=== PATIENT | male | born 1970 | race Caucasian/White ===

== ENCOUNTER 2016-11-28 20:40 | Emergency (ER) | payer OTHER ==
--- NOTE | 2016-11-28 20:45 | PDOC ---
History of Present Illness - General History Source: Patient Exam Limitations: No Limitations - History of Present Illness Initial Comments: The patient is a 46 yo M with no significant past medical history who presents with L elbow pain. The patient states he was in the drivers seat of his car and he pulled away and the door swung out. The patient states when he grabbed the door it pulled his arm subsequently hurting his elbow. The patient denies trauma to other areas. He denies head trauma and LOC. The patient states his pain is worsened by extension of his L arm. Allergies: Penicillin <Bobbi Brumfield - Last Filed: 11/28/16 20:57> - General History Source: Patient, Old Records Exam Limitations: No Limitations <Estela Piper - Last Filed: 11/28/16 21:21> - General Chief Complaint: Injury Stated Complaint: LT ARM PAIN Time Seen by Provider: 11/28/16 20:44 Past History <Bobbi Brumfield - Last Filed: 11/28/16 20:57> - Psycho/Social/Smoking Cessation Hx Suicidal Ideation: No Smoking History: Current every day smoker Have you smoked in the past 12 months: Yes Number of Cigarettes Smoked Daily: 10 Information on smoking cessation initiated: Yes <Estela Piper - Last Filed: 11/28/16 21:21> - Past Medical History Allergies/Adverse Reactions: Allergies Allergy/AdvReac Type Severity Reaction Status Date / Time Penicillins Allergy Verified 11/28/16 20:44 Home Medications: Ambulatory Orders NK [No Known Home Medication] 11/28/16 Review of Systems - Review of Systems Able to Perform ROS?: Yes Comments:: CONSTITUTIONAL: Absent: fever, no chills, no fatigue EYES: Absent: visual changes ENT: Absent: ear pain, no sore throat CARDIOVASCULAR: Absent: chest pain, no palpitations RESPIRATORY: Absent: cough, no SOB GI: Absent: abdominal pain, no nausea, no vomiting, no constipation, no diarrhea GENITOURINARY: Absent: dysuria, no frequency, no hematuria MUSKULOSKELETAL: + L elbow pain Absent: back pain SKIN: Absent: rash <Bobbi Brumfield Last Filed: 11/28/16 20:57> *Physical Exam - Vital Signs Last Vital Signs Temp Pulse Resp BP Pulse Ox 98.6 F 89 16 122/76 96 11/28/16 20:42 11/28/16 20:42 11/28/16 20:42 11/28/16 20:42 11/28/16 20:42 - Physical Exam Comments: GENERAL: Well-appearing, well-nourished. No apparent distress. HEENT: Normocephalic, atraumatic. PERRL, EOM intact. CARDIOVASCULAR: Normal S1, S2. Regular rate and rhythm. PULMONARY: Clear to auscultation bilaterally. ABDOMEN: Soft, non-distended, non-tender. EXTREMITIES: No gross deformities. Swelling to the L biceps region with tenderness but no ecchymosis. Biceps tendon was not palpable. No bony tenderness. SKIN: Warm, dry. No rash NEUROLOGICAL: No focal neurological deficits. <Bobbi Brumfield - Last Filed: 11/28/16 20:57> - Vital Signs Last Vital Signs Temp Pulse Resp BP Pulse Ox 98.6 F 89 16 122/76 96 11/28/16 20:42 11/28/16 20:42 11/28/16 20:42 11/28/16 20:42 11/28/16 20:42 <Estela Piper - Last Filed: 11/28/16 21:21> Medical Decision Making - Medical Decision Making 11/28/16 20:53 46-year-old male with no significant past medical history presents to the emergency department with pain to his left humerus region after his car door swung out words while he was holding it. Differential diagnosis includes but is not limited to: Biceps tendon rupture, Humerus fracture, elbow fracture, soft tissue injury, muscle spasm. Plan: 1. Plain films of left humerus and elbow 2. NSAIDs for pain 3. The patient will require follow-up with orthopedics within the next 1-5 days 4. I've advised the patient to return to the emergency department if his symptoms persist, worsen, or new symptoms arise. 11/28/16 21:18 Addendum: Plain films of the left humerus and elbow are negative by my read. Will discharge home with the abovementioned instructions. <Estela Piper - Last Filed: 11/28/16 21:21> *DC/Admit/Observation/Transfer - Attestations Scribe Attestion: Documentation prepared by Bobbi Brumfield, acting as certified medical assistant for Estela Piper MD, /DO. <Bobbi Brumfield - Last Filed: 11/28/16 20:57> - Discharge Dispostion Admit: No - Attestations Physician Attestion: 11/28/16 20:55 I, Dr. Estela Piper, attest that the scribes documentation that appears above has been prepared under my direction and personally reviewed by me in its entirety. I confirmed that the note above accurately reflects all work, treatment, procedures, and medical decision-making performed by me. <Estela Piper - Last Filed: 11/28/16 21:21> Diagnosis at time of Disposition: Rupture of left biceps tendon - Discharge Dispostion Disposition: HOME Condition at time of disposition: Stable - Patient Instructions Printed Discharge Instructions: How to Use a Sling Additional Instructions: You may follow-up with orthopedics: Dr Ceballos or Dr. Dailey: [phone] You may take Ibuprofen 600-800mg every 6=-8 hours as needed for pain. Return to the emergency department if your symptoms persist, worsen, or new symptoms arise.
[2016-11-28 20:54] VITALS: BP 122/76; PULSE 89; TEMP 98.6; BMI 32.6
[2016-11-28] MEDS ORDERED: IBUPROFEN 400 MG TABLET (FP) PO ONE ×2 (20:57→21:00)
== END 2016-11-28 21:27 | disposition home or self-care (01) ==
LOC: FER 20:40
DX: S46.212A Strain of muscle, fascia and tendon of other parts of biceps, left arm, initial encounter (principal); V48.0XXA Car driver injured in noncollision transport accident in nontraffic accident, initial encounter; Y93.89 Activity, other specified; Y92.219 Unspecified school as the place of occurrence of the external cause; F17.210 Nicotine dependence, cigarettes, uncomplicated
CPT/HCPCS: 73060-TC-LT; 73070-TC-LT; 99282-25

== ENCOUNTER 2018-07-10 13:43 | Emergency (ER) | payer OTHER ==
--- NOTE | 2018-07-10 13:50 | PDOC ---
History of Present Illness - General Chief Complaint: Psychiatric Stated Complaint: ANXIETY Time Seen by Provider: 07/10/18 13:45 History Source: Patient Exam Limitations: No Limitations - History of Present Illness Initial Comments: 07/10/18 13:48 Pt is a 48yo M with no significant PMH presenting to ED for anxiety. Pt states that yesterday he started "to feel funny" describing it as a tingling sensation all over the body. Pt states today he started to feel a little worse stating that "my breathing is off" and "I feel funny". Pt was worried that his heart may be causing his symptoms so he came to the ED. He started Keto Pills 4 days ago and has been drinking a diet drink every morning. He has had "anxiety" problems before but he says today it feels worse. He endorses lightheadedness, weakness and "funny sensation" in the chest. Denies chest pain, sob, cough, congestion, fevers, chills, abdominal pain, n/v/d, headaches, changes in vision , recent travel/surgeries, leg swelling. Father had "heart issues" in his 70s. PMD: Camisa PMH: see hpi PSH: hernia repair Meds: none Allergies: PCN Social: smokes 1/2ppd Past History - Past Medical History Allergies/Adverse Reactions: Allergies Allergy/AdvReac Type Severity Reaction Status Date / Time Penicillins Allergy Verified 07/10/18 13:51 Home Medications: Ambulatory Orders NK [No Known Home Medication] 11/28/16 - Suicide/Smoking/Psychosocial Hx Smoking History: Current every day smoker Have you smoked in the past 12 months: Yes Number of Cigarettes Smoked Daily: 10 'Breaking Loose' booklet given: 11/28/16 Review of Systems - Review of Systems Constitutional: Yes: Malaise, Weakness. No: Chills, Fever HEENTM: No: Symptoms Reported Respiratory: No: Cough, Shortness of Breath Cardiac (ROS): Yes: Lightheadedness, Chest Tightness. No: Chest Pain, Palpitations ABD/GI: No: Constipated, Diarrhea, Nausea, Vomiting, Abdominal cramping : No: Symptoms Reported Musculoskeletal: Yes: See HPI Integumentary: No: Symptoms Reported Neurological: Yes: See HPI *Physical Exam - Physical Exam General Appearance: Yes: Nourished, Appropriately Dressed. No: Apparent Distress HEENT: positive: EOMI, DAMNO, Normal ENT Inspection, Other (dry membranes) Neck: positive: Trachea midline, Supple. negative: Lymphadenopathy (R), Lymphadenopathy (L) Respiratory/Chest: positive: Lungs Clear, Normal Breath Sounds. negative: Crackles, Rales, Rhonchi, Stridor Cardiovascular: positive: Regular Rhythm, Regular Rate, S1, S2. negative: Edema , JVD, Murmur Vascular Pulses: Carotid (R): 2+, Carotid (L): 2+, Dorsalis-Pedis (R): 2+, Doralis-Pedis (L): 2+ Gastrointestinal/Abdominal: positive: Normal Bowel Sounds, Soft. negative: Tenderness Musculoskeletal: negative: CVA Tenderness, Vertebral Tenderness Extremity: positive: Normal Capillary Refill, Tender. negative: Pedal Edema, Swelling Integumentary: positive: Normal Color, Dry, Warm Neurologic: positive: black top raker II-XII NML intact, Fully Oriented, Alert, Normal Mood/ Affect, Normal Response, Motor Strength 08/16 ED Treatment Course - LABORATORY CBC & Chemistry Diagram: 07/10/18 15:09 07/10/18 15:09 Medical Decision Making - Medical Decision Making 07/10/18 19:42 Pt is a 48yo M with no significant PMH presenting to ED for anxiety. Pt states that yesterday he started "to feel funny" describing it as a tingling sensation all over the body. Pt states today he started to feel a little worse stating that "my breathing is off" and "I feel funny". Pt was worried that his heart may be causing his symptoms so he came to the ED. He started Keto Pills 4 days ago and has been drinking a diet drink every morning. He has had "anxiety" problems before but he says today it feels worse. He endorses lightheadedness, weakness and "funny sensation" in the chest. Denies chest pain, sob, cough, congestion, fevers, chills, abdominal pain, n/v/d, headaches, changes in vision , recent travel/surgeries, leg swelling. Father had "heart issues" in his 70s. Vitals: wnl PE: benign, dry membranes ddx includes but not lmited to electrolyte imbalance, acs, metabolic disturbance -labs, trop -ekg -iv fluids labs wnl. trop negative EKG: nsr. no bishnu or depressions. will order second trop. pt states he has to go be somewhere and cannot wait for second troponin but says he will return to ED for repeat levels. Pt would have to sign out AMA but can come back for repeat labs. Pt understands. Given return precautions. Has capacity to make decisions. Understands risks of leaving AMA including MO, cardiac arrest *DC/Admit/Observation/Transfer Diagnosis at time of Disposition: Malaise, Chest tightness - Discharge Dispostion Disposition: AGAINST MEDICAL ADVICE Condition at time of disposition: Good Decision to Admit order: No - Referrals Referrals: Gerson Jiménez MD [Non Staff, Medical] - Bob Gao MD [Staff Physician] - - Patient Instructions Printed Discharge Instructions: DI for Atypical Chest Pain Additional Instructions: You were seen in the emergency room today for feelings of anxiety. All your lab work was normal and the EKG is normal. I recommend to stop taking the diet pills. I also recommend that you make an appointment with your primary care doctor next week. You should also make an appointment with a rating specialist. Your primary care doctor might need to refer you. If not you can see Dr. Gao (contact information below). Come back to the emergency room if you develop chest pains, feel short of breath , you pass out or if any new concerning symptom develops. Thank you - Post Discharge Activity
[2018-07-10 13:54] VITALS: TEMP 98.4; BMI 33.7
--- NOTE | 2018-07-10 14:23 | PDOC ---
Attending Attestation - Resident Resident Name: Diane Marlow - ED Attending Attestation I have performed the following: I have examined & evaluated the patient, The case was reviewed & discussed with the resident, I agree w/resident's findings & plan, Exceptions are as noted - HPI HPI: 07/10/18 14:52 48y M no known pmhx presents with 'feeling funny' since yesterday. he started feeling tingling all over his body along with feeling sob around 4am this morning after being told he looked alittle blue by his nephew. he states prior to that he was feeling fine. sinc then he has been having intermittnt episodes of feeling tingling throughout his body as well as mild sob, lasting approx 5min at a time. he was again feelnig that way when he went to work this afternoon so came to the ED for evaluation. he denies any cp, abd pain, back zachary, headache, leg swelling, palpitations, diarrhea, melena, bpr, dysuria. These episodes are non exetional. he has never had these symptoms before. social: 1/2 pack /day smoking, social etoh, denies other drugs General: no acute distress HEENT: dry mmm PULM: cta b/l CARD - Medical Decision Making 07/10/18 16:32 pts blood work reviewed and unremrakble ekg als wnl pt leaving AMA due to work i discussed our desire to rpreat his troponin, but he states he needs to work a job tonight, he will come back aftewards to repeat his test. discussed that we need to trend the trop to eval for his heart, but he states he understands that here is a risk of delayed/missed diagnosis if he does not stay for the repeat test. he states he understands. Heart Score/ECG Review - ECG Impressions Comment:: 07/10/18 16:34 Twelve-lead EKG was performed and reviewed by me. There is normal sinus rhythm with a normal rate. rate of 68 The axis is normal. The intervals are normal. There is normal R wave progression There are no ST or T wave abnormalities. Impression: Normal twelve-lead EKG
[2018-07-10] MEDS ORDERED: SODIUM CHLORIDE 1,000 ML IV STA (14:57)
[2018-07-10 15:24] LABS: BASO % 0.5 % (0-2.0); EOS % 2.7 % (0-4.5); HEMATOCRIT 46.5 % (35.4-49); LYMPH % 26.6 % (8-40); MCH 29.3 pg (25.7-33.7); MCHC 32.3 g/dl (32.0-35.9); MEAN CELL VOLUME 90.5 fl (80-96); MEAN PLT VOLUME 8.6 fl (7.5-11.1); MONO % 7.4 % (3.8-10.2); NEUT % 62.8 % (42.8-82.8); PLATELET COUNT 193 K/MM3 (134-434); RBC 5.14 M/mm3 (4.00-5.60); RDW 12.9 % (11.9-15.9); WHITE BLOOD COUNT 5.5 K/mm3 (4.0-10.8)
[2018-07-10 15:32] LABS: ALBUMIN 4.2 g/dl (3.4-5.0); ALK PHOS 54 U/L (45-117); ANION GAP 7 MMOL/L (8-16); BILIRUBIN,TOTAL 0.8 mg/dl (0.2-1); BLOOD UREA NITROGEN 13 mg/dl (7-18); CALCIUM 8.9 mg/dl (8.5-10); CHLORIDE 104 mmol/L (98-107); CO2 24 mmol/L (21-32); GLUCOSE,RANDOM 96 mg/dl (74-106); MAGNESIUM 2.1 mg/dL (1.8-2.4); POTASSIUM 4.3 mmol/L (3.5-5.1); SGOT/AST 23 U/L (15-37); SGPT/ALT 46 U/L (13-61); SODIUM 135 mmol/L (136-145); TOT PROT 6.8 g/dl (6.4-8.2)
[2018-07-10 16:53] VITALS: BP 133/57; PULSE 78
--- NOTE | 2018-07-13 11:27 | EKG ---
Test Reason : Blood Pressure : / mmHG Vent. Rate : 068 BPM Atrial Rate : 068 BPM P-R Int : 166 ms QRS Dur : 092 ms QT Int : 390 ms P-R-T Axes : 033 057 033 degrees QTc Int : 414 ms NORMAL SINUS RHYTHM NORMAL ECG NO PREVIOUS ECGS AVAILABLE Confirmed by JACI MARES MD ([id number]) on 07/13/2018 11:26:28 AM Referred By: MD LESLIE Confirmed By:JACI MARES MD
== END 2018-07-10 16:40 | disposition left against medical advice (07) ==
LOC: FER 13:43
PROC: 3E0337Z Introduction of Electrolytic and Water Balance Substance into Peripheral Vein, Percutaneous Approach (ICD-10-PCS; principal; 2018-07-10)
DX: R07.89 Other chest pain (principal); R53.81 Other malaise
CPT/HCPCS: 36415; 80053; 83735; 84484; 85025; 93005; 96360; 99284-25; J7030